=== PATIENT | male | born 1990 | race Caucasian/White ===

== ENCOUNTER 2018-07-05 06:05 | Day surgery (SDC) | payer OTHER ==
[2018-07-04 18:35] VITALS: BMI 28.8
[2018-07-05] MEDS ORDERED: ROCURONIUM BROMIDE 50 MG/5 ML VIAL ONE (07:05)
[2018-07-05] MEDS ORDERED: fentaNYL CITRATE 250 MCG/5 ML VIAL ONE (07:05)
[2018-07-05] MEDS ORDERED: PROPOFOL 20 ML ONE (07:05)
[2018-07-05] MEDS ORDERED: LIDOCAINE HCL/PF 2% SDV 5ML VIAL ONE (07:06)
[2018-07-05] MEDS ORDERED: MIDAZOLAM HCL 2 MG/2 ML SINGLE DOSE VIAL ONE (07:06)
[2018-07-05] MEDS ORDERED: DEXAMETHASONE SOD PHOSPHATE 4 MG/1 ML VIAL ONE (07:06)
[2018-07-05] MEDS ORDERED: LIDOCAINE 1%-EPI 1:100,000 30 ML MDV IJ ONE (07:26)
[2018-07-05] MEDS ORDERED: COCAINE HCL 4% TOPICAL SOLUTION 4 ML BOTTLE TP ONE ×2 (07:30→08:25)
[2018-07-05] MEDS ORDERED: LIDOCAINE 1%/EPI 1:100000 (20 ML MULTI DOSE VIAL) IJ ONE (08:23)
[2018-07-05] MEDS ORDERED: NEOSTIGMINE METHYLSULFATE 0.5 MG/ML - 10 ML MDV ONE (09:13)
[2018-07-05] MEDS ORDERED: GLYCOPYRROLATE 0.2 MG/1 ML VIAL ONE (09:14)
--- NOTE | 2018-07-05 09:33 | OP ---
Operative Note - Note: Operative Date: 07/05/18 Pre-Operative Diagnosis: deviated nasal septum. chronic adenoiditis Operation: septoplasty and adenoidectomy Post-Operative Diagnosis: Same as Pre-op Surgeon: Jeremy White Anesthesiologist/MILITARY AIRCRAFT DESIGNER: Tutu Ortiz Anesthesia: General Specimens Removed: septum Estimated Blood Loss (mls): 20 Blood Volume Replaced (mls): 0 Fluid Volume Replaced (mls): 500 Operative Report Dictated: Yes
--- NOTE | 2018-07-05 11:27 | OP ---
DATE OF OPERATION: 07/05/2018 PREOPERATIVE DIAGNOSES: Deviated nasal septum and chronic adenoiditis. POSTOPERATIVE DIAGNOSES: Deviated nasal septum and chronic adenoiditis. PROCEDURES: Septoplasty and adenoidectomy. SURGEON: Jeremy White MD ANESTHESIA: Tutu Ortiz CRNA INDICATIONS: The patient is a 28-year-old man with chronic postnasal drip symptoms and nasal obstruction, refractory to maximal medical management, who on physical examination was noted to have a severely right-sided deviated nasal septum and exudative adenoiditis. The nature and purpose of the proposed procedure, as well as the risks, benefits, alternatives, and possible complications were discussed in detail with the patient who appears to understand and wishes to proceed with surgery. All questions were answered and an informed consent was given by the patient. PROCEDURE DESCRIPTION: With the patient under general endotracheal anesthesia in the supine position, he was prepped and draped in the usual sterile fashion. A mouth gag was placed, keeping the tongue and endotracheal tube in the midline position, and was suspended on chest towels. Red rubber catheters were passed through the nose and out the mouth to suspend the soft palate. Mirror examination of the adenoids reveals that they were mildly enlarged with mild exudate. Using a Coblation Procise Max wand, the adenoids were resected on its default settings. There was insignificant bleeding from that procedure. Once the adenoidectomy was complete, the red rubber catheters were removed, the mouth gag was removed, the back was elevated and the nose was addressed. The nose was prepped with 6 mL of 1% lidocaine with epinephrine 1:100,000 injected into the mucosa, followed by 4% cocaine on cottonoid pledgets. After waiting several minutes, the pledgets were removed, and the procedure was begun by making a right-sided Flavio incision. This was deepened to the level of the septal cartilage and then a mucoperichondrial flap was raised intact on the left side. An oblique incision was made approximately 1.5 cm from the caudal end of the septum, and through this, a right-sided mucoperichondrial flap was elevated with inadvertent perforations over the area of greatest deflection. Deflected portions of septal bone and cartilage were resected sharply. Bleeding was controlled with suction cautery. The septal incision was closed with 4-0 chromic, and 3-0 chromic was used as a mattress suture. A small amount of Nasopore packing was placed into each nostril to support the repair. A nasal trip dressing was then applied. When the patient awakened, he was extubated and discharged to the recovery room in satisfactory condition. Estimated blood loss 20 mL. There were no complications. The septal cartilage and bone were sent as a pathologic specimen. JEREMY WHITE M.D. /[id number] MTDD
[2018-07-05 13:27] VITALS: BP 133/78; PULSE 60; TEMP 98
--- NOTE | 2018-07-08 18:11 | PATH ---
Surgical Pathology Report Patient Name: REYNA HARDIN [facility]. Rec. #: [id number] /Age/Gender: 1990 (Age: 28) / M Account: [id number] Location: [facility] Taken: 07/05/2018 Received: 07/05/2018 Reported: 07/08/2018 Physicians: Jeremy White Specimen(s) Received NASAL SEPTUM Clinical History Stuffy Nose, chronic Final Diagnosis NASAL SEPTUM, EXCISION: FRAGMENTS OF CARTILAGE AND BONE, CONSISTENT WITH SEPTUM. Electronically Signed Reji Metcalf M.D. Gross Description Received in formalin labeled "nasal septum," is a 3.5 x 2.2 x 0.3 cm aggregate of multiple portions of bone and cartilage. Control Tower Radio Operator sections are submitted in one cassette, following decalcification. /07/05/201807/05/2018
== END 2018-07-05 12:10 | disposition home or self-care (01) ==
LOC: JASU-SURG 06:05
PROVIDERS: ATTEND Otolaryngology
PROC: 09BM8ZZ Excision of Nasal Septum, Via Natural or Artificial Opening Endoscopic (ICD-10-PCS; principal; 2018-07-05 07:30)
PROC: 0CTQXZZ Resection of Adenoids, External Approach (ICD-10-PCS; 2018-07-05 07:30)
DX: J34.2 Deviated nasal septum (principal); J35.02 Chronic adenoiditis
CPT/HCPCS: 88304-TC; 88311-TC; 94760